=== PATIENT | female | born 1970 | race Two or more races ===

== ENCOUNTER 2024-12-03 09:50 | Day surgery (SDC) | payer MEDICAID, SELFPAY ==
[2024-12-03] VITALS (8 sets, daily range): BP systolic 94–119; BP diastolic 64–87; PULSE 75–95; RESP 14–20; TEMP 36.6–37.1; O2SAT 94–100; BMI 35.1
[2024-12-03] MEDS: BENZOCAINE 20% (Hurricaine) SPRAY 1 DOSE TOP (11:35)
[2024-12-03] MEDS: DiphenhydrAMINE INJ 50 MG/ML VIAL 25 MG IVP (11:36)
[2024-12-03] MEDS: SODIUM CHLORIDE 0.9% 500 ML 500 ML 20 ML IV (11:36)
[2024-12-03] MEDS: MIDAZOLAM INJ 1 MG/ML VIAL 2 ML (ASD USE ONLY) 2 MG IVP (11:40)
[2024-12-03] MEDS: fentaNYL CIT INJ 50 mCg/ML AMP 2ML (ASD USE ONLY) IVP (11:40)
== END 2024-12-03 12:30 | disposition home or self-care (01) ==
PROVIDERS: PCP Physician Assistant; Referring Provider Internal Medicine Gastroenterology; Visit Provider Internal Medicine Gastroenterology
PROC: (CPT 43239; principal; 2024-12-03 09:00)
DX: K29.70 Gastritis, unspecified, without bleeding (principal); I10 Essential (primary) hypertension; E66.9 Obesity, unspecified; K44.9 Diaphragmatic hernia without obstruction or gangrene; K31.89 Other diseases of stomach and duodenum
CPT/HCPCS: 43239; 81025; J1200; J2250; J3010; J7040; A9270

== ENCOUNTER 2024-12-05 08:15 | Day surgery (SDC) | payer MEDICAID, SELFPAY ==
[2024-12-04 14:28] VITALS: BMI 35.1
[2024-12-05] VITALS (11 sets, daily range): BP systolic 96–171; BP diastolic 67–113; PULSE 72–93; RESP 13–22; TEMP 36.6–36.9; O2SAT 97–100; BMI 34.5
[2024-12-05] MEDS: SODIUM CHLORIDE 0.9% 500 ML 500 ML 20 ML IV (10:17)
[2024-12-05] MEDS: MIDAZOLAM INJ 1 MG/ML VIAL 2 ML (ASD USE ONLY) 2 MG IVP (10:23)
[2024-12-05] MEDS: fentaNYL CIT INJ 50 mCg/ML AMP 2ML (ASD USE ONLY) IVP (10:23)
[2024-12-05] MEDS: DiphenhydrAMINE INJ 50 MG/ML VIAL 25 MG IVP (10:23)
== END 2024-12-05 11:25 | disposition home or self-care (01) ==
PROVIDERS: Referring Provider Internal Medicine Gastroenterology; Visit Provider Internal Medicine Gastroenterology
PROC: 0DBE8ZX Excision of Large Intestine, Via Natural or Artificial Opening Endoscopic, Diagnostic (ICD-10-PCS; CPT 45380; principal; 2024-12-05 08:15)
DX: K62.89 Other specified diseases of anus and rectum (principal); K52.9 Noninfective gastroenteritis and colitis, unspecified; K64.8 Other hemorrhoids; I10 Essential (primary) hypertension
CPT/HCPCS: 45380; A4217; J1200; J2250; J3010; J7040